=== PATIENT | male | born 1945 | race Caucasian/White ===

== ENCOUNTER 2018-06-04 06:27 | Inpatient (IN) ==
--- NOTE | 2018-06-04 07:06 | Emergency Department Note ---
Disposition Clinical Impression: Hypertensive emergency, Ureterolithiasis, Acute kidney injury Disposition: Admitted As Inpatient Condition: Fair [facility] Provider[facility] - Forms: ED Satisfaction Letter, Work/School Release Time of Disposition: 09:04 Abdominal Pain HPI - General Chief Complaint: ED Abdominal Pain Stated Complaint: "Abd Pain/Back Pain" Time Seen by Provider: 06/04/18 06:50 Source: patient, family Mode of arrival: ambulatory Limitations: no limitations Nursing Notes Reviewed: Yes Vital Signs Reviewed: Yes - History of Present Illness HPI Narrative: Nontoxic-appearing 73-year-old male presents for evaluation of diffuse abdominal pain that radiates into the lower back, chills, constipation, and intermittent episodes of dizziness. Patient states that symptoms began this past Saturday. He states that he was working outside on the tractor and began to feel lightheaded and as if he overexerted himself. He states that he parked tractor driven home, shortly thereafter, he began to chill. Shortly after his chills began, he began to experience diffuse lower abdominal pain that started radiating into the low back. It is also accompanied by nausea and several episodes of vomiting. He states that his last proper bowel movement was this past Saturday. He denies any dysuria, chest pain, shortness of breath, hematochezia, melena, or hematemesis. Pt Subjective Complaint: abdominal pain Onset (ago): day(s) Consistency: constant Location: diffuse Pain Severity: severe Pain Scale: 8 Quality: cramping Radiation: back Improves with: nothing Worsens with: nothing Associated symptoms: Reports: nausea, vomiting, chills, constipation. Denies: diarrhea, fever, dysuria, hematemesis, hematochezia, melena, hematuria Treatments prior to arrival: none - Related Data Allergies Allergy/AdvReac Type Severity Reaction Status Date / Time No Known Allergies Allergy Verified 06/04/18 06:28 All systems ED: reviewed and negative except as stated. Constitutional: Reports: as per HPI, chills. Denies: fever, weakness, weight change Eyes: Denies: eye pain, eye discharge, vision change ENT ED: Denies: ear pain, throat pain, dental pain, hearing loss, epistaxis, congestion, dysphagia Cardiovascular: Denies: chest pain, palpitations, dyspnea on exertion, edema, syncope Respiratory: Denies: cough, dyspnea, wheezes, hemoptysis, stridor Gastrointestinal: Reports: as per HPI, abdominal pain, nausea, vomiting, constipation. Denies: diarrhea, hematemesis, melena, hematochezia Genitourinary: Denies: urgency, dysuria, frequency, hematuria Musculoskeletal: Reports: as per HPI, back pain. Denies: neck pain, arthralgia , myalgia Integumentary: Denies: rash, abrasion, lesions Neurological: Denies: headache, weakness, numbness, paresthesias, confusion, abnormal gait, vertigo Psychiatric: Denies: anxiety, depression, suicidal thoughts, homicidal thoughts , auditory hallucinations, visual hallucinations Endocrine: Denies: fatigue Hematological/Lymphatic: Denies: easy bleeding, easy bruising Allergic/Immunologic: Denies: facial swelling, urticaria Abdominal Pain PMH - Past Medical History Medical history: Reports: hypertension Psychiatric history: Reports: no psych history - Social History Smoking status: Never smoker Alcohol use: Reports: none, rarely Physical Exam - General Limitations: no limitations General appearance: alert - Head Head exam: atraumatic, normocephalic, normal inspection - Eye Eye exam: Present: normal appearance, PERRL, EOMI. Absent: nystagmus - ENT ENT exam: mucous membranes moist - Neck Neck exam: Present: normal inspection, full ROM, trachea midline - Chest Chest inspection: Present: normal inspection, symmetric chest wall rise - Respiratory Respiratory exam: Present: normal lung sounds bilaterally. Absent: respiratory distress, wheezes, stridor, accessory muscle use, prolonged expiratory phase - Cardiovascular Cardiovascular exam: Present: regular rate, normal rhythm, normal heart sounds - Abdominal Exam Abdominal exam: Present: soft, tenderness, distention, guarding, normal bowel sounds. Absent: rebound, rigidity Abdominal tenderness: Present: diffuse, moderate - Extremities Exam Extremities exam: Present: normal inspection, full ROM. Absent: tenderness, pedal edema - Neurological Exam Neurological exam: Present: alert, oriented X3 - Psychiatric Psychiatric exam: Present: normal affect, normal mood - Skin Skin exam: Present: warm, dry, intact, normal color. Absent: rash Course Course Narrative: I have discussed this patient's case with Dr. Anabelle Soares. Dr. Anabelle Soares has had a [id number] evaluation with the patient and agrees that a CTA of the chest and abdomen should be performed to rule out a dissection given the patient's complaints of stabbing diffuse abdominal pain that radiates through to his back in conjunction with his hypertension. The patient does, however, have some decreased kidney function, compared to baseline results provided to me by the patient's spouse from a visit at the local [facility] in January of this year. At that time, his creatinine was 1.11 and his GFR was greater than 60. Today, creatinine is found to be 1.72 and his GFR is decreased to 39. 0740: I spoke with , radiologist with [facility]. He is in agreement that the patient would warrant a CTA dissection protocol given his complaints. He is agreeable to this study however does suggest that we hydrate the patient to the fullest extent possible as well as administer a 75% dose of IV contrast. I have conveyed these instructions to the sterilization tech here at [place]. 0858: I spoke with Dr. Holden, urologist front line supervisor. Dr. Holden we will consult with the patient in house after we admit to the hospitalist service. He does request the patient remain on nothing by mouth status at this time. 0930: I spoke with Dr. Cabrales, brake coupler dinkey front line supervisor regarding the patient's previously scheduled outpatient stress test for later this afternoon. Dr. Cabrales states that she will let the cardiopulmonary department know that the patient will not be able to make that appointment, as he will be admitted. She also states that given the patient has no cardiac complaints or symptoms, that in-house cardiology consultation is not warranted at this time. 1000: I spoke with Dr. Lu of the hospitalist service who is accepted the patient for further care and management. Vital Signs Temperature 98.1 F 06/04/18 06:29 Pulse Rate 95 06/04/18 06:29 Respiratory Rate 20 06/04/18 06:29 Blood Pressure 165/86 06/04/18 06:29 O2 Sat by Pulse Oximetry 95 06/04/18 06:29 Temperature 98.1 F 06/04/18 06:29 Pulse Rate 93 06/04/18 09:07 Respiratory Rate 20 06/04/18 09:07 Blood Pressure 151/88 06/04/18 09:07 O2 Sat by Pulse Oximetry 95 06/04/18 09:07 Oxygen Delivery Oxygen Delivery Room Air Abdominal Pain - Medical Records Medical records reviewed: Yes I reviewed the patient's medical records. - Lab Data Lab results reviewed: Yes I reviewed the patient's lab results. Lab results narrative: Lab Results 06/04/18 06/04/18 06/04/18 Range/Units 06:41 06:45 06:45 WBC 11.1 (4.3-11.1) K/mcL RBC 4.81 (4.19-5.50) M/mcL Hgb 14.4 (12.9-16.9) g/dL Hct 42.5 (37.5-50.1) % MCV 88.4 (83.0-100.0) fL MCH 29.9 (28.0-33.3) pg MCHC 33.9 (31.6-35.5) g/dL RDW 13.2 (11.5-14.5) % Plt Count 136 L (140-400) K/mcL MPV 10.4 (9.4-12.4) fL Sodium 139 (136-145) mEq/L Potassium 3.9 (3.5-5.1) mEq/L Chloride 107 (98-107) mEq/L Carbon Dioxide 24 (23-29) mEq/L BUN 21 (8-23) mg/dL Creatinine 1.72 H (0.70-1.30) mg/dL Est GFR ( Amer) 47 L (> 60) Est GFR (Non-Af Amer) 39 L (> 60) BUN/Creatinine Ratio 12 (6-26) Glucose 143 H (70-105) mg/dL Calculated Osmolality 293 (280-300) Lactic Acid (0.5-2.2) mmol/L Calcium 9.3 (8.6-10.3) mg/dL Total Bilirubin 1.1 H (0.3-1.0) mg/dL Direct Bilirubin 0.2 (0.0-0.2) mg/dL Indirect Bilirubin 0.9 (0.0-1.2) mg/dL AST 19 (13-39) Units/L ALT 20 (7-52) Units/L Alkaline Phosphatase 74 (34-104) Units/L Troponin I < 0.03 (< 0.04) ng/mL Serum Total Protein 7.1 (6.4-8.9) g/dL Albumin 4.3 (3.5-5.7) g/dL Globulin 2.8 (2.4-3.5) g/dL Albumin/Globulin Ratio 1.5 (1.1-2.2) Lipase 22 (11-82) Units/L Urine Color Yellow (Yellow) Urine Clarity Clear (Clear) Urine pH 5.5 (5.0-8.0) pH Units Ur Specific [place] 1.024 (1.010-1.025) Urine Protein Trace (Neg-Trace) mg/dL Urine Glucose (UA) Normal (Normal) mg/dL Urine Ketones Negative (Negative) mg/dL Urine Blood Moderate H (Negative) Urine Nitrite Negative (Negative) Urine Bilirubin Negative (Negative) Urine Urobilinogen Normal (Normal) mg/dL Ur Leukocyte Esterase Small H (Negative) Urine Microscopic RBC 50-100 H (0-3) per hpf Urine Microscopic WBC 15-30 H (0-3) per hpf Ur Squamous Epith Cells Moderate H (None-Few) per lpf Urine Bacteria None Seen (None-Few) per hpf Hyaline Casts None Seen (None-Few) per lpf Ur Culture Indicated? YES A (NO) 06/04/18 Range/Units 07:19 WBC (4.3-11.1) K/mcL RBC (4.19-5.50) M/mcL Hgb (12.9-16.9) g/dL Hct (37.5-50.1) % MCV (83.0-100.0) fL MCH (28.0-33.3) pg MCHC (31.6-35.5) g/dL RDW (11.5-14.5) % Plt Count (140-400) K/mcL MPV (9.4-12.4) fL Sodium (136-145) mEq/L Potassium (3.5-5.1) mEq/L Chloride (98-107) mEq/L Carbon Dioxide (23-29) mEq/L BUN (8-23) mg/dL Creatinine (0.70-1.30) mg/dL Est GFR ( Amer) (> 60) Est GFR (Non-Af Amer) (> 60) BUN/Creatinine Ratio (6-26) Glucose (70-105) mg/dL Calculated Osmolality (280-300) Lactic Acid 1.7 (0.5-2.2) mmol/L Calcium (8.6-10.3) mg/dL Total Bilirubin (0.3-1.0) mg/dL Direct Bilirubin (0.0-0.2) mg/dL Indirect Bilirubin (0.0-1.2) mg/dL AST (13-39) Units/L ALT (7-52) Units/L Alkaline Phosphatase (34-104) Units/L Troponin I (< 0.04) ng/mL Serum Total Protein (6.4-8.9) g/dL Albumin (3.5-5.7) g/dL Globulin (2.4-3.5) g/dL Albumin/Globulin Ratio (1.1-2.2) Lipase (11-82) Units/L Urine Color (Yellow) Urine Clarity (Clear) Urine pH (5.0-8.0) pH Units Ur Specific [place] (1.010-1.025) Urine Protein (Neg-Trace) mg/dL Urine Glucose (UA) (Normal) mg/dL Urine Ketones (Negative) mg/dL Urine Blood (Negative) Urine Nitrite (Negative) Urine Bilirubin (Negative) Urine Urobilinogen (Normal) mg/dL Ur Leukocyte Esterase (Negative) Urine Microscopic RBC (0-3) per hpf Urine Microscopic WBC (0-3) per hpf Ur Squamous Epith Cells (None-Few) per lpf Urine Bacteria (None-Few) per hpf Hyaline Casts (None-Few) per lpf Ur Culture Indicated? (NO) Result diagrams: 06/04/18 06:45 06/04/18 06:45 Lab Results 06/04/18 06/04/18 06/04/18 Range/Units 06:41 06:45 06:45 WBC 11.1 (4.3-11.1) K/mcL RBC 4.81 (4.19-5.50) M/mcL Hgb 14.4 (12.9-16.9) g/dL Hct 42.5 (37.5-50.1) % MCV 88.4 (83.0-100.0) fL MCH 29.9 (28.0-33.3) pg MCHC 33.9 (31.6-35.5) g/dL RDW 13.2 (11.5-14.5) % Plt Count 136 L (140-400) K/mcL MPV 10.4 (9.4-12.4) fL Sodium 139 (136-145) mEq/L Potassium 3.9 (3.5-5.1) mEq/L Chloride 107 (98-107) mEq/L Carbon Dioxide 24 (23-29) mEq/L BUN 21 (8-23) mg/dL Creatinine 1.72 H (0.70-1.30) mg/dL Est GFR ( Amer) 47 L (> 60) Est GFR (Non-Af Amer) 39 L (> 60) BUN/Creatinine Ratio 12 (6-26) Glucose 143 H (70-105) mg/dL Calculated Osmolality 293 (280-300) Lactic Acid (0.5-2.2) mmol/L Calcium 9.3 (8.6-10.3) mg/dL Total Bilirubin 1.1 H (0.3-1.0) mg/dL Direct Bilirubin 0.2 (0.0-0.2) mg/dL Indirect Bilirubin 0.9 (0.0-1.2) mg/dL AST 19 (13-39) Units/L ALT 20 (7-52) Units/L Alkaline Phosphatase 74 (34-104) Units/L Troponin I < 0.03 (< 0.04) ng/mL Serum Total Protein 7.1 (6.4-8.9) g/dL Albumin 4.3 (3.5-5.7) g/dL Globulin 2.8 (2.4-3.5) g/dL Albumin/Globulin Ratio 1.5 (1.1-2.2) Lipase 22 (11-82) Units/L Urine Color Yellow (Yellow) Urine Clarity Clear (Clear) Urine pH 5.5 (5.0-8.0) pH Units Ur Specific [place] 1.024 (1.010-1.025) Urine Protein Trace (Neg-Trace) mg/dL Urine Glucose (UA) Normal (Normal) mg/dL Urine Ketones Negative (Negative) mg/dL Urine Blood Moderate H (Negative) Urine Nitrite Negative (Negative) Urine Bilirubin Negative (Negative) Urine Urobilinogen Normal (Normal) mg/dL Ur Leukocyte Esterase Small H (Negative) Urine Microscopic RBC 50-100 H (0-3) per hpf Urine Microscopic WBC 15-30 H (0-3) per hpf Ur Squamous Epith Cells Moderate H (None-Few) per lpf Urine Bacteria None Seen (None-Few) per hpf Hyaline Casts None Seen (None-Few) per lpf Ur Culture Indicated? YES A (NO) 06/04/18 Range/Units 07:19 WBC (4.3-11.1) K/mcL RBC (4.19-5.50) M/mcL Hgb (12.9-16.9) g/dL Hct (37.5-50.1) % MCV (83.0-100.0) fL MCH (28.0-33.3) pg MCHC (31.6-35.5) g/dL RDW (11.5-14.5) % Plt Count (140-400) K/mcL MPV (9.4-12.4) fL Sodium (136-145) mEq/L Potassium (3.5-5.1) mEq/L Chloride (98-107) mEq/L Carbon Dioxide (23-29) mEq/L BUN (8-23) mg/dL Creatinine (0.70-1.30) mg/dL Est GFR ( Amer) (> 60) Est GFR (Non-Af Amer) (> 60) BUN/Creatinine Ratio (6-26) Glucose (70-105) mg/dL Calculated Osmolality (280-300) Lactic Acid 1.7 (0.5-2.2) mmol/L Calcium (8.6-10.3) mg/dL Total Bilirubin (0.3-1.0) mg/dL Direct Bilirubin (0.0-0.2) mg/dL Indirect Bilirubin (0.0-1.2) mg/dL AST (13-39) Units/L ALT (7-52) Units/L Alkaline Phosphatase (34-104) Units/L Troponin I (< 0.04) ng/mL Serum Total Protein (6.4-8.9) g/dL Albumin (3.5-5.7) g/dL Globulin (2.4-3.5) g/dL Albumin/Globulin Ratio (1.1-2.2) Lipase (11-82) Units/L Urine Color (Yellow) Urine Clarity (Clear) Urine pH (5.0-8.0) pH Units Ur Specific [place] (1.010-1.025) Urine Protein (Neg-Trace) mg/dL Urine Glucose (UA) (Normal) mg/dL Urine Ketones (Negative) mg/dL Urine Blood (Negative) Urine Nitrite (Negative) Urine Bilirubin (Negative) Urine Urobilinogen (Normal) mg/dL Ur Leukocyte Esterase (Negative) Urine Microscopic RBC (0-3) per hpf Urine Microscopic WBC (0-3) per hpf Ur Squamous Epith Cells (None-Few) per lpf Urine Bacteria (None-Few) per hpf Hyaline Casts (None-Few) per lpf Ur Culture Indicated? (NO) - Radiology Data Radiology results reviewed: Yes I reviewed the patient's radiology results. Chest X-Ray 06/04/18 07:01 IMPRESSION: No acute cardiopulmonary disease. D/ / Norman Johnson MD / Norman Johnson MD Interpreting Provider: Norman Johnson MD Abdomen/Pelvis CTA 06/04/18 07:40 IMPRESSION: There is an obstructive stone identified within the left proximal ureter measuring 3.6 mm causing periureteral and perinephric stranding, as well as mild hydronephrosis. Several nonspecific hypodense lesions identified throughout the liver, the largest of which likely representing a simple cyst. The others are too small to characterize. Further evaluation is recommended with an MRI of the liver per liver mass protocol. If unable to undergo MRI, consider a CT liver mass protocol examination. Diverticulosis without acute diverticulitis. There is a 4.6 mm pulmonary nodule identified in the left upper lobe, for which follow-up is recommended as below per Fleischner criteria. Atherosclerotic disease is identified, without aortic aneurysm or dissection. No significant arterial stenosis is seen. RECOMMENDATIONS: Fleischner Society guidelines for follow-up and management of incidentally detected pulmonary nodules: Single Solid Nodule: Nodule size less than 6 mm In a low-risk patient, no routine follow-up. In a high-risk patient, optional CT at 12 months. - Low risk patients include individuals with minimal or absent history of smoking and other known risk factors. - High risk patients include individuals with a history or smoking or known risk factors. Radiology 2017 http://pubs.rsna.org/doi/full/10.1148/radiol.[email or web address] D/ / John Meléndez MD / John Meléndez MD Interpreting Provider: John Meléndez MD Chest CTA 06/04/18 07:40 IMPRESSION: There is an obstructive stone identified within the left proximal ureter measuring 3.6 mm causing periureteral and perinephric stranding, as well as mild hydronephrosis. Several nonspecific hypodense lesions identified throughout the liver, the largest of which likely representing a simple cyst. The others are too small to characterize. Further evaluation is recommended with an MRI of the liver per liver mass protocol. If unable to undergo MRI, consider a CT liver mass protocol examination. Diverticulosis without acute diverticulitis. There is a 4.6 mm pulmonary nodule identified in the left upper lobe, for which follow-up is recommended as below per Fleischner criteria. Atherosclerotic disease is identified, without aortic aneurysm or dissection. No significant arterial stenosis is seen. RECOMMENDATIONS: Fleischner Society guidelines for follow-up and management of incidentally detected pulmonary nodules: Single Solid Nodule: Nodule size less than 6 mm In a low-risk patient, no routine follow-up. In a high-risk patient, optional CT at 12 months. - Low risk patients include individuals with minimal or absent history of smoking and other known risk factors. - High risk patients include individuals with a history or smoking or known risk factors. Radiology 2017 http://pubs.rsna.org/doi/full/10.1148/radiol.[email or web address] D/ / John Meléndez MD / John Meléndez MD Interpreting Provider: John Meléndez MD - EKG Data EKG attestation: Yes I reviewed and interpreted this EKG. EKG results narrative: EKG reviewed by Dr. Camp as well. EKG shows a sinus rhythm at a rate of 91 bpm. CA interval 152, QRS duration 93, QT/QTc interval 363/412. No ectopy noted. No ST elevation.
[2018-06-04 07:18] LABS: Bilirubin,Urine Negative (Negative); Blood,Urine Moderate (Negative); Clarity,Urine Clear (Clear); Color,Urine Yellow (Yellow); Glucose,Urine (UA) Normal (Normal); Ketones,Urine Negative (Negative); Leukocyte Esterase,Urine Small (Negative); Nitrite,Urine Negative (Negative); PH,Urine 5.5 pH Units (5.0-8.0); Protein,Urine Trace mg/dL (Neg-Trace); Specific Gravity,Urine 1.024 (1.010-1.025); Urobilinogen,Urine Normal (Normal)
[2018-06-04 07:21] LABS: Bacteria,Urine None Seen per hpf (None-Few); Hyaline Casts,Urine None Seen per lpf (None-Few); RBC,Urine 50-100 per hpf (0-3); Squamous Epithelial Cell,Urine Moderate per lpf (None-Few); WBC,Urine 15-30 per hpf (0-3)
[2018-06-04 07:22] LABS: Alanine Aminotransferase 20 Units/L (7-52); Albumin 4.3 g/dL (3.5-5.7); Albumin/Globulin Ratio 1.5 (1.1-2.2); Alkaline Phosphatase 74 Units/L (34-104); Aspartate Amino Transferase 19 Units/L (13-39); BUN/Creatinine Ratio 12 (6-26); Bilirubin,Direct 0.2 mg/dL (0.0-0.2); Bilirubin,Indirect 0.9 mg/dL (0.0-1.2); Bilirubin,Total 1.1 mg/dL (0.3-1.0); Blood Urea Nitrogen 21 mg/dL (8-23); Calcium 9.3 mg/dL (8.6-10.3); Carbon Dioxide 24 mEq/L (23-29); Chloride 107 mEq/L (98-107); Globulin 2.8 g/dL (2.4-3.5); Glucose 143 mg/dL (70-105); Lipase 22 Units/L (11-82); Osmolality,Calculated 293 (280-300); Potassium 3.9 mEq/L (3.5-5.1); Sodium 139 mEq/L (136-145); Total Protein 7.1 g/dL (6.4-8.9); Troponin I < 0.03 ng/mL (< 0.04); eGFR For Non-African Americans 39 (> 60)
[2018-06-04 07:23] LABS: Hematocrit 42.5 % (37.5-50.1); Hemoglobin 14.4 g/dL (12.9-16.9); Mean Corpuscular HGB Conc 33.9 g/dL (31.6-35.5); Mean Corpuscular Hemoglobin 29.9 pg (28.0-33.3); Mean Corpuscular Volume 88.4 fL (83.0-100.0); Mean Platelet Volume 10.4 fL (9.4-12.4); Platelet Count 136 K/mcL (140-400); Red Blood Count 4.81 M/mcL (4.19-5.50); Red Cell Distribution Width 13.2 % (11.5-14.5)
[2018-06-04] MEDS ORDERED: Isovue-370 500 ML INFUS..BTL IV ONE (07:40)
--- NOTE | 2018-06-04 07:57 | Emergency Department Note ---
Disposition Clinical Impression: Hypertensive emergency Disposition: Admitted As Inpatient [facility] Provider[facility] - Forms: ED Satisfaction Letter, Work/School Release Time of Disposition: 07:57 General Adult HPI - General Chief complaint: ED Abdominal Pain Stated complaint: "Abd Pain/Back Pain" Time Seen by Provider: 06/04/18 06:50 Source: patient, family Mode of arrival: ambulatory Limitations: no limitations - History of Present Illness Pain Scale: 8 - Related Data Allergies Allergy/AdvReac Type Severity Reaction Status Date / Time No Known Allergies Allergy Verified 06/04/18 06:28 Constitutional: Reports: as per HPI, chills. Denies: fever, weakness, weight change Eyes: Denies: eye pain, eye discharge, vision change ENT ED: Denies: ear pain, throat pain, dental pain, hearing loss, epistaxis, congestion, dysphagia Cardiovascular: Denies: chest pain, palpitations, dyspnea on exertion, edema, syncope Respiratory: Denies: cough, dyspnea, wheezes, hemoptysis, stridor Gastrointestinal: Reports: as per HPI, abdominal pain, nausea, vomiting, constipation. Denies: diarrhea, hematemesis, melena, hematochezia Genitourinary: Denies: urgency, dysuria, frequency, hematuria Musculoskeletal: Reports: as per HPI, back pain. Denies: neck pain, arthralgia , myalgia Integumentary: Denies: rash, abrasion, lesions Neurological: Denies: headache, weakness, numbness, paresthesias, confusion, abnormal gait, vertigo Psychiatric: Denies: anxiety, depression, suicidal thoughts, homicidal thoughts , auditory hallucinations, visual hallucinations Endocrine: Denies: fatigue Hematological/Lymphatic: Denies: easy bleeding, easy bruising Allergic/Immunologic: Denies: facial swelling, urticaria Past Medical History - Past Medical History Medical history: Reports: hypertension Psychiatric history: Reports: no psych history - Social History Smoking Status: Never smoker Alcohol use: Reports: none, rarely Physical Exam - General Limitations: no limitations General appearance: alert Course Vital Signs Temperature 98.1 F 06/04/18 06:29 Pulse Rate 95 06/04/18 06:29 Respiratory Rate 20 06/04/18 06:29 Blood Pressure 165/86 06/04/18 06:29 O2 Sat by Pulse Oximetry 95 06/04/18 06:29 Temperature 98.1 F 06/04/18 06:29 Pulse Rate 90 06/04/18 06:47 Respiratory Rate 18 06/04/18 06:47 Blood Pressure 191/93 06/04/18 06:47 O2 Sat by Pulse Oximetry 94 06/04/18 06:47 Oxygen Delivery Oxygen Delivery Room Air Medical Decision Making - Lab Data Result diagrams: 06/04/18 06:45 06/04/18 06:45 Lab Results 06/04/18 06/04/18 06/04/18 Range/Units 06:41 06:45 06:45 WBC 11.1 (4.3-11.1) K/mcL RBC 4.81 (4.19-5.50) M/mcL Hgb 14.4 (12.9-16.9) g/dL Hct 42.5 (37.5-50.1) % MCV 88.4 (83.0-100.0) fL MCH 29.9 (28.0-33.3) pg MCHC 33.9 (31.6-35.5) g/dL RDW 13.2 (11.5-14.5) % Plt Count 136 L (140-400) K/mcL MPV 10.4 (9.4-12.4) fL Sodium 139 (136-145) mEq/L Potassium 3.9 (3.5-5.1) mEq/L Chloride 107 (98-107) mEq/L Carbon Dioxide 24 (23-29) mEq/L BUN 21 (8-23) mg/dL Creatinine 1.72 H (0.70-1.30) mg/dL Est GFR ( Amer) 47 L (> 60) Est GFR (Non-Af Amer) 39 L (> 60) BUN/Creatinine Ratio 12 (6-26) Glucose 143 H (70-105) mg/dL Calculated Osmolality 293 (280-300) Lactic Acid (0.5-2.2) mmol/L Calcium 9.3 (8.6-10.3) mg/dL Total Bilirubin 1.1 H (0.3-1.0) mg/dL Direct Bilirubin 0.2 (0.0-0.2) mg/dL Indirect Bilirubin 0.9 (0.0-1.2) mg/dL AST 19 (13-39) Units/L ALT 20 (7-52) Units/L Alkaline Phosphatase 74 (34-104) Units/L Troponin I < 0.03 (< 0.04) ng/mL Serum Total Protein 7.1 (6.4-8.9) g/dL Albumin 4.3 (3.5-5.7) g/dL Globulin 2.8 (2.4-3.5) g/dL Albumin/Globulin Ratio 1.5 (1.1-2.2) Lipase 22 (11-82) Units/L Urine Color Yellow (Yellow) Urine Clarity Clear (Clear) Urine pH 5.5 (5.0-8.0) pH Units Ur Specific [place] 1.024 (1.010-1.025) Urine Protein Trace (Neg-Trace) mg/dL Urine Glucose (UA) Normal (Normal) mg/dL Urine Ketones Negative (Negative) mg/dL Urine Blood Moderate H (Negative) Urine Nitrite Negative (Negative) Urine Bilirubin Negative (Negative) Urine Urobilinogen Normal (Normal) mg/dL Ur Leukocyte Esterase Small H (Negative) Urine Microscopic RBC 50-100 H (0-3) per hpf Urine Microscopic WBC 15-30 H (0-3) per hpf Ur Squamous Epith Cells Moderate H (None-Few) per lpf Urine Bacteria None Seen (None-Few) per hpf Hyaline Casts None Seen (None-Few) per lpf Ur Culture Indicated? YES A (NO) 06/04/18 Range/Units 07:19 WBC (4.3-11.1) K/mcL RBC (4.19-5.50) M/mcL Hgb (12.9-16.9) g/dL Hct (37.5-50.1) % MCV (83.0-100.0) fL MCH (28.0-33.3) pg MCHC (31.6-35.5) g/dL RDW (11.5-14.5) % Plt Count (140-400) K/mcL MPV (9.4-12.4) fL Sodium (136-145) mEq/L Potassium (3.5-5.1) mEq/L Chloride (98-107) mEq/L Carbon Dioxide (23-29) mEq/L BUN (8-23) mg/dL Creatinine (0.70-1.30) mg/dL Est GFR ( Amer) (> 60) Est GFR (Non-Af Amer) (> 60) BUN/Creatinine Ratio (6-26) Glucose (70-105) mg/dL Calculated Osmolality (280-300) Lactic Acid 1.7 (0.5-2.2) mmol/L Calcium (8.6-10.3) mg/dL Total Bilirubin (0.3-1.0) mg/dL Direct Bilirubin (0.0-0.2) mg/dL Indirect Bilirubin (0.0-1.2) mg/dL AST (13-39) Units/L ALT (7-52) Units/L Alkaline Phosphatase (34-104) Units/L Troponin I (< 0.04) ng/mL Serum Total Protein (6.4-8.9) g/dL Albumin (3.5-5.7) g/dL Globulin (2.4-3.5) g/dL Albumin/Globulin Ratio (1.1-2.2) Lipase (11-82) Units/L Urine Color (Yellow) Urine Clarity (Clear) Urine pH (5.0-8.0) pH Units Ur Specific [place] (1.010-1.025) Urine Protein (Neg-Trace) mg/dL Urine Glucose (UA) (Normal) mg/dL Urine Ketones (Negative) mg/dL Urine Blood (Negative) Urine Nitrite (Negative) Urine Bilirubin (Negative) Urine Urobilinogen (Normal) mg/dL Ur Leukocyte Esterase (Negative) Urine Microscopic RBC (0-3) per hpf Urine Microscopic WBC (0-3) per hpf Ur Squamous Epith Cells (None-Few) per lpf Urine Bacteria (None-Few) per hpf Hyaline Casts (None-Few) per lpf Ur Culture Indicated? (NO) Attestation Statement - Attestation Attestation: For this encounter, I have reviewed the REPRODUCTION SPECIALIST or PA documentation, treatment plan, and medical decision making; and I have had face to face time with this patient. 73 year old male with epigatric pain that radiates into his back [facility] Medardo states that he has been currenlty evlauted for hematuria and today on labs appears to have SABI secondary to uncontrolled HTN. There is concern for aortic dissection and we have spoken with radiologist about CTA chest/ab/p and he agrees to do the study with hydration of medardo afterwards. Patient will have a CTA and then be admitted to medicine if study is negative for hypertensive emergency.
[2018-06-04] MEDS ORDERED: Ondansetron 4 MG/2 ML VIAL IVP ONE ×3 (08:24→18:33)
[2018-06-04] MEDS ORDERED: *HR* FentaNYL (PF) 100 MCG/2 ML VIAL IVP ONE (08:24)
--- NOTE | 2018-06-04 09:44 | Internal Med History&Physical ---
Date of Encounter: 06/04/18 Internal Medicine - H&P: HPI History of present illness: Mr. Eugene is a 73 year old male Past Med Surg Social Fam HX - Past Medical History Medical history: hypertension Psychiatric history: no psych history - Social History Smoking Status: Never smoker Alcohol use: none, rarely Internal Medicine - H&P: Meds 3 Allergy/AdvReac Type Severity Reaction Status Date / Time No Known Allergies Allergy Verified 06/04/18 06:28 All Systems PM: A 10-system review of systems was performed and is negative for pertinent findings except as documented above in the HPI. - Constitutional Vitals: Temp Pulse Resp BP Pulse Ox 98.1 F 93 20 151/88 95 06/04/18 06:29 06/04/18 09:07 06/04/18 09:07 06/04/18 09:07 06/04/18 09:07 Internal Med - H&P Results - Labs CBC & Chem 7: 06/04/18 06:45 06/04/18 06:45 Labs: Short CBC 06/04/18 Range/Units 06:45 WBC 11.1 (4.3-11.1) K/mcL Hgb 14.4 (12.9-16.9) g/dL Hct 42.5 (37.5-50.1) % Plt Count 136 L (140-400) K/mcL BMP 06/04/18 06:45 Sodium 139 Potassium 3.9 Chloride 107 Carbon Dioxide 24 BUN 21 Creatinine 1.72 H Glucose 143 H Calcium 9.3 Cardiac Enzymes 06/04/18 Range/Units 06:45 Troponin I < 0.03 (< 0.04) ng/mL Liver Function 06/04/18 Range/Units 06:45 Total Bilirubin 1.1 H (0.3-1.0) mg/dL Direct Bilirubin 0.2 (0.0-0.2) mg/dL AST 19 (13-39) Units/L ALT 20 (7-52) Units/L Alkaline Phosphatase 74 (34-104) Units/L Albumin 4.3 (3.5-5.7) g/dL Urine 06/04/18 Range/Units 06:41 Urine Color Yellow (Yellow) Urine Clarity Clear (Clear) Urine pH 5.5 (5.0-8.0) pH Units Ur Specific [place] 1.024 (1.010-1.025) Urine Protein Trace (Neg-Trace) mg/dL Urine Glucose (UA) Normal (Normal) mg/dL - Impressions ITS Impressions Chest X-Ray 06/04/18 07:01 IMPRESSION: No acute cardiopulmonary disease. D/ / Norman Johnson MD / Norman Johnson MD Interpreting Provider: Norman Johnson MD Abdomen/Pelvis CTA 06/04/18 07:40 IMPRESSION: There is an obstructive stone identified within the left proximal ureter measuring 3.6 mm causing periureteral and perinephric stranding, as well as mild hydronephrosis. Several nonspecific hypodense lesions identified throughout the liver, the largest of which likely representing a simple cyst. The others are too small to characterize. Further evaluation is recommended with an MRI of the liver per liver mass protocol. If unable to undergo MRI, consider a CT liver mass protocol examination. Diverticulosis without acute diverticulitis. There is a 4.6 mm pulmonary nodule identified in the left upper lobe, for which follow-up is recommended as below per Fleischner criteria. Atherosclerotic disease is identified, without aortic aneurysm or dissection. No significant arterial stenosis is seen. RECOMMENDATIONS: Fleischner Society guidelines for follow-up and management of incidentally detected pulmonary nodules: Single Solid Nodule: Nodule size less than 6 mm In a low-risk patient, no routine follow-up. In a high-risk patient, optional CT at 12 months. - Low risk patients include individuals with minimal or absent history of smoking and other known risk factors. - High risk patients include individuals with a history or smoking or known risk factors. Radiology 2017 http://pubs.rsna.org/doi/full/10.1148/radiol.[email or web address] D/ / John Meléndez MD / John Meléndez MD Interpreting Provider: John Meléndez MD Chest CTA 06/04/18 07:40 IMPRESSION: There is an obstructive stone identified within the left proximal ureter measuring 3.6 mm causing periureteral and perinephric stranding, as well as mild hydronephrosis. Several nonspecific hypodense lesions identified throughout the liver, the largest of which likely representing a simple cyst. The others are too small to characterize. Further evaluation is recommended with an MRI of the liver per liver mass protocol. If unable to undergo MRI, consider a CT liver mass protocol examination. Diverticulosis without acute diverticulitis. There is a 4.6 mm pulmonary nodule identified in the left upper lobe, for which follow-up is recommended as below per Fleischner criteria. Atherosclerotic disease is identified, without aortic aneurysm or dissection. No significant arterial stenosis is seen. RECOMMENDATIONS: Fleischner Society guidelines for follow-up and management of incidentally detected pulmonary nodules: Single Solid Nodule: Nodule size less than 6 mm In a low-risk patient, no routine follow-up. In a high-risk patient, optional CT at 12 months. - Low risk patients include individuals with minimal or absent history of smoking and other known risk factors. - High risk patients include individuals with a history or smoking or known risk factors. Radiology 2017 http://pubs.rsna.org/doi/full/10.1148/radiol.[email or web address] D/ / John Meléndez MD / John Meléndez MD Interpreting Provider: John Meléndez MD - Time Spent With Patient Total time spent is greater than 50% in coordination of care (as documented) at patient's floor/unit and/or counseling patient:
--- NOTE | 2018-06-04 12:29 | Urology - Consult Note ---
<Ana Myrick N - Last Filed: 06/04/18 14:06> Date of Encounter: 06/04/18 Time of Encounter: 11:00 - Assessment and Plan (1) Ureterolithiasis Current Visit: Yes Status: Acute Assessment and plan: Patient is a 73-year-old male who presents the emergency department with a left proximal obstructing 3.6 mm ureteral stone. The patient is being admitted to the hospitalist service. Patient is to remain nothing by mouth. I discussed the risks and benefits of a ureteroscopic stone extraction with holmium laser and basket retrieval as well as ureteral stent placment with the patient and his . The patient and his both verbalized understanding and wish to proceed with surgery. The patient is admitted to the hospitalist service and will remain NPO. Urology CN:HPI Consult date: 06/04/18 Reason for consult Urology: Other (Left ureteral stone) History of present illness: Patient is a 73-year-old male who presented to the emergency department with complaints of abdominal pain and left flank pain. He states he has been up most of the night with nausea, urinary hesitancy, frequency, and severe pain. The patient was scheduled for a nuclear stress test by his primary care physician at the [facility], therefore the patient has not taken aspirin 81 mg for 48 hours. The patient denies any other anticoagulant therapy. Patient is established with a urologist at the [facility]. He recently underwent a cystoscopy for hematuria, and findings were benign per the patient' s . The patient is currently being treated for benign prostatic hypertrophy with tamsulosin daily and finasteride daily. The patient does have a history of renal stones, he has never undergone a procedure for extraction. Past Med Surg Social Fam HX - Past Medical History Medical history: hypertension Psychiatric history: no psych history - Social History Smoking Status: Never smoker Alcohol use: none, rarely Drug use: none Medications and Allergies Amlodipine Besylate 10 mg PO DAILY 06/04/18 [History] Aspirin [Lo-Dose Aspirin EC] 81 mg PO DAILY 06/04/18 [History] Escitalopram [Lexapro] 10 mg PO DAILY 06/04/18 [History] Finasteride [Proscar] 5 mg PO DAILY 06/04/18 [History] Fluticasone Propionate Nasal [Flonase] 1 spr NS DAILY 06/04/18 [History] Ginseng 100 mg PO DAILY 06/04/18 [History] Losartan Potassium [Cozaar] 100 mg PO DAILY 06/04/18 [History] Metoprolol Succinate [Toprol Xl] 25 mg PO DAILY 06/04/18 [History] Multivit-Min/FA/Lycopen/Lutein [A Thru Z Select Multivit Tab] 1 tab PO DAILY 06/14 [History] Naproxen [Naprosyn] 500 mg PO BID PRN 06/04/18 [History] Sennosides/Docusate Sodium [Colace 2-in-1 Tablet] 1 tab PO BID PRN 06/04/18 [ History] Sildenafil Citrate 100 mg PO DAILY PRN 06/04/18 [History] Tamsulosin HCl [Flomax] 0.4 mg PO BID 06/04/18 [History] Trazodone HCl 150 mg PO HS 06/04/18 [History] lamoTRIgine [Lamictal] 100 mg PO BID 06/04/18 [History] 3 Allergy/AdvReac Type Severity Reaction Status Date / Time No Known Allergies Allergy Verified 06/04/18 06:28 Review of Systems - Constitutional as per HPI, no chills, no fatigue, no fever(s) - EENT Nose, mouth and throat: no dizziness, no headache(s) - Cardiovascular no chest pain, no dyspnea - Respiratory no cough, no dyspnea - Gastrointestinal abdominal pain, nausea, no change in bowel habits, no vomiting - Genitourinary change in urinary stream, difficulty urinating, flank pain, hematuria, urinary frequency, urinary hesitancy, urinary urgency, no dysuria, no testicular pain, no urinary incontinence - Musculoskeletal back pain, no muscle weakness - Integumentary no lesions, no rash, no swelling - Neurological no confusion, no syncope - Psychiatric no anxiety, no confusion Exam Initial Vital Signs Temp Pulse Resp BP Pulse Ox 98.1 F 95 20 165/86 95 06/04/18 06:29 06/04/18 06:29 06/04/18 06:29 06/04/18 06:29 06/04/18 06:29 - General physical appearance Present: well developed, no distress, no pain - Eyes Present: PERRL, normal ocular movement - ENT Present: normal nares. Absent: nasal discharge - Neck Present: no masses, trachea midline - Respiratory Present: normal respiratory effort - Cardiovascular Cardiovascular exam IM: RRR - Abdomen Abdomen: Present: soft, non tender - Genitourinary other (left CVAT) - Integumentary Present: no rash, no abnormal pigmentation - Neurologic Present: normal coordination. Absent: disoriented - Musculoskeletal Present: other (no pedal edema ) Urology Results - Labs 06/04/18 06:45 08 06:45 Abnormal lab results Plt Count 136 K/mcL (140-400) L 06/04/18 06:45 Creatinine 1.72 mg/dL (0.70-1.30) H 06/04/18 06:45 Est GFR ( Amer) 47 (> 60) L 06/04/18 06:45 Est GFR (Non-Af Amer) 39 (> 60) L 06/04/18 06:45 Glucose 143 mg/dL (70-105) H 06/04/18 06:45 Total Bilirubin 1.1 mg/dL (0.3-1.0) H 06/04/18 06:45 Urine Blood Moderate (Negative) H 06/04/18 06:41 Ur Leukocyte Esterase Small (Negative) H 06/04/18 06:41 Urine Microscopic RBC 50-100 per hpf (0-3) H 06/04/18 06:41 Urine Microscopic WBC 15-30 per hpf (0-3) H 06/04/18 06:41 Ur Squamous Epith Cells Moderate per lpf (None-Few) H 06/04/18 06:41 Ur Culture Indicated? YES (NO) A 06/04/18 06:41 All other labs normal. - Imaging CT scan - abdomen: report reviewed, image reviewed CT scan - pelvis: report reviewed, image reviewed Consult Discharge Plan - Plan [facility] Provider[facility] - <Ciro Holden - Last Filed: 06/04/18 17:29> Date of Encounter: 06/04/18 Exam Initial Vital Signs Temp Pulse Resp BP Pulse Ox 98.1 F 95 20 165/86 95 06/04/18 06:29 18 06:29 18 06:29 06/04/18 06:29 06/04/18 06:29 Urology Results - Labs 06/04/18 06:45 06/04/18 06:45 Abnormal lab results Plt Count 136 K/mcL (140-400) L 06/04/18 06:45 Creatinine 1.72 mg/dL (0.70-1.30) H 06/04/18 06:45 Est GFR ( Amer) 47 (> 60) L 06/04/18 06:45 Est GFR (Non-Af Amer) 39 (> 60) L 06/04/18 06:45 Glucose 143 mg/dL (70-105) H 06/04/18 06:45 Total Bilirubin 1.1 mg/dL (0.3-1.0) H 06/04/18 06:45 Urine Blood Moderate (Negative) H 06/04/18 06:41 Ur Leukocyte Esterase Small (Negative) H 06/04/18 06:41 Urine Microscopic RBC 50-100 per hpf (0-3) H 06/04/18 06:41 Urine Microscopic WBC 15-30 per hpf (0-3) H 06/04/18 06:41 Ur Squamous Epith Cells Moderate per lpf (None-Few) H 06/04/18 06:41 Ur Culture Indicated? YES (NO) A 06/04/18 06:41 All other labs normal. - Attending Attestation I seen and examined the patient with the PA. Agree with the assessment and plan. He has a proximal left ureteral stone. Plan for left ureteroscopy, laser lithotripsy, and stent placement. He was informed of the risks of the procedure including but not limited to bleeding, infection, injury to other structures, need for further procedures, stent irritation, incomplete fragmentation, ureteral perforation, need for nephrostomy tube, need for open repair, risks unforeseen, and the risk of anesthesia. He is willing to proceed.
--- NOTE | 2018-06-04 13:06 | Internal Med History&Physical ---
Date of Encounter: 06/04/18 Time of Encounter: 12:55 Internal Medicine - H&P: HPI Admitted From: Home Plans for Post Hospital Care: Home History of present illness: Mr. Eugene is a 73 year old male with past medical history of renal calculi who presents with left flank pain that developed on 06/02/2018. Pt states pain radiated to his left back and mid abdomen. Reported feeling nauseous and vomited. Does not note hematuria but reports subjective fever and chills. CODE STATUS: FULL In ED Case discussed with urologist in ED and they plan on seeing the pt in consult. Temp 98.2, WBC 11.1 Cr 1.72, BUN21, glucose 143. Urine moderate blood, small leuks, urine WBC 50-100. CTA abd/pelvis CT/CT angio abdomen pelvis IMPRESSION: There is an obstructive stone identified within the left proximal ureter measuring 3.6 mm causing periureteral and perinephric stranding, as well as mild hydronephrosis. Several nonspecific hypodense lesions identified throughout the liver, the largest of which likely representing a simple cyst. The others are too small to characterize. Further evaluation is recommended with an MRI of the liver per liver mass protocol. If unable to undergo MRI, consider a CT liver mass protocol examination. Diverticulosis without acute diverticulitis. There is a 4.6 mm pulmonary nodule identified in the left upper lobe, for which follow-up is recommended as below per Fleischner criteria. Atherosclerotic disease is identified, without aortic aneurysm or dissection. No significant arterial stenosis is seen. Past Med Surg Social Fam HX - Past Medical History Medical history: hypertension Psychiatric history: no psych history - Social History Smoking Status: Never smoker Alcohol use: none, rarely Drug use: none Internal Medicine - H&P: Meds Amlodipine Besylate 10 mg PO DAILY 06/04/18 [History] Aspirin [Lo-Dose Aspirin EC] 81 mg PO DAILY 06/04/18 [History] Escitalopram [Lexapro] 10 mg PO DAILY 06/04/18 [History] Finasteride [Proscar] 5 mg PO DAILY 06/04/18 [History] Fluticasone Propionate Nasal [Flonase] 1 spr NS DAILY 06/04/18 [History] Ginseng 100 mg PO DAILY 06/04/18 [History] Losartan Potassium [Cozaar] 100 mg PO DAILY 06/04/18 [History] Metoprolol Succinate [Toprol Xl] 25 mg PO DAILY 06/04/18 [History] Multivit-Min/FA/Lycopen/Lutein [A Thru Z Select Multivit Tab] 1 tab PO DAILY 06/14 [History] Naproxen [Naprosyn] 500 mg PO BID PRN 06/04/18 [History] Sennosides/Docusate Sodium [Colace 2-in-1 Tablet] 1 tab PO BID PRN 06/04/18 [ History] Sildenafil Citrate 100 mg PO DAILY PRN 06/04/18 [History] Tamsulosin HCl [Flomax] 0.4 mg PO BID 06/04/18 [History] Trazodone HCl 150 mg PO HS 06/04/18 [History] lamoTRIgine [Lamictal] 100 mg PO BID 06/04/18 [History] 3 Allergy/AdvReac Type Severity Reaction Status Date / Time No Known Allergies Allergy Verified 06/04/18 06:28 All Systems PM: A 10-system review of systems was performed and is negative for pertinent findings except as documented above in the HPI. - Constitutional Vitals: Temp Pulse Resp BP Pulse Ox 98.2 F 75 16 145/83 94 06/04/18 11:06 06/04/18 11:06 06/04/18 11:06 06/04/18 11:06 06/04/18 11:06 General appearance: Present: A&O X 3, no acute distress - Head Head exam: Present: atraumatic, normocephalic - Eye Eye exam: Present: PERRL, conjuntiva pink, sclera anicteric Pupils: Present: PERRL - Neck Neck exam general surgery: Present: supple, trachea midline. Absent: lymphadenopathy - Respiratory Respiratory exam: Present: CTAB. Absent: accessory muscle use, rales, rhonchi, wheezes - Cardiovascular Cardiovascular exam: Present: RRR, +S1, +S2. Absent: diastolic murmur, gallop, rubs, systolic murmur - GI/Abdominal GI/Abdominal exam: Present: normal bowel sounds, soft, tenderness, no peritoneal signs. Absent: distended Additional comments: left flank tenderness. - Extremities Exam Extremities exam: Present: warm, radial pulses palpable and symmetrical. Absent : calf tenderness, cyanotic, pedal edema - Neurological Exam Neurological exam: Present: CN II-XII intact, oriented X3, no focal deficits. Absent: pronater drift, facial droop, speech deficit - Skin Skin exam: Present: dry, intact Internal Med - H&P Results - Labs CBC & Chem 7: 06/04/18 06:45 06/04/18 06:45 - Assessment and plan (1) Ureterolithiasis Current Visit: Yes Status: Acute Assessment and plan: The patient does have a history of renal stones, he has never undergone a procedure for extraction. Case discussed with urologist in ED cue to CT showing left proximal obstructing 3.6 mm ureteral stone Urology planing to do possible stone extraction in am. Prn pain control. (2) HTN (hypertension) Current Visit: Yes Status: Acute Assessment and plan: Will monitor BP and resume home BP medication Qualifiers: Hypertension type: essential hypertension Qualified Code(s): I10 - Essential (primary) hypertension (3) Acute kidney injury Current Visit: Yes Status: Acute Assessment and plan: Will give IVF and monitor renal function (4) Liver masses Current Visit: Yes Status: Acute Assessment and plan: CTA abd/pelvis showing several nonspecific hypodense lesions identified throughout the liver, the largest of which likely representing a simple cyst. Recommend MRI Liver follow up out pt. (5) Pulmonary nodule Current Visit: Yes Status: Acute Assessment and plan: Recommend out pt follow up with project administrative assistant and CT chest follow up in 12months. - Time Spent With Patient Total time spent is greater than 50% in coordination of care (as documented) at patient's floor/unit and/or counseling patient: 25 - 35 minutes
[2018-06-04] MEDS ORDERED: Sennosides/Docusate Sodium TABLET PO PRN ×2 (13:20→18:33)
[2018-06-04] MEDS ORDERED: NON-FORMULARY MEDICATION 1 EACH EACH (Sildenafil Citrate [Sildenafil Citrate] 100 MG) PO PRN (13:20)
[2018-06-04] MEDS ORDERED: *HR* OxyCODONE/APAP 5/325 TABLET PO PRN ×2 (13:27→18:33)
[2018-06-04] MEDS ORDERED: Naloxone 0.4 MG/ML INJ IVP PRN ×2 (13:42→18:33)
[2018-06-04] MEDS ORDERED: 0.9 % Sodium Chloride 1,000 ML IVC SCH (15:30)
[2018-06-04] MEDS ORDERED: *HR* FentaNYL (PF) 100 MCG/2 ML VIAL ONE (16:20)
[2018-06-04] MEDS ORDERED: Lidocaine -MPF 2% 2 ML VIAL ONE (16:20)
[2018-06-04] MEDS ORDERED: Dexamethasone 4 MG/ML VIAL ONE (16:20)
[2018-06-04] MEDS ORDERED: *HR* Propofol 200 MG/20 ML VIAL IVP ONE (16:20)
[2018-06-04] MEDS ORDERED: Ondansetron 4 MG/2 ML VIAL ONE (16:20)
--- NOTE | 2018-06-04 16:33 | Anesthesia Evaluation PreOp ---
Date of Encounter: 06/04/18 Time of Encounter: 16:31 - Past History Planned Operation: L-Ureteroscopic Stone Extraction Cardiac History: HTN Pulmonary History: Other (Hx Pulmonary Nodule) STAFFING BRANCH MANAGER History: Other (Anxiety/Depression) Other Medical History: Renal (Nephrolithiasis) Anesthesia History: No Prior Anesthetic Complications, Past Anesthesia ( Eye surgery/Bleparoplasty 03/2018, C6 spine sugery 1980s) Alcohol Use: none, rarely Drug use: none Medications and Allergies Amlodipine Besylate 10 mg PO DAILY 06/04/18 [History] Aspirin [Lo-Dose Aspirin EC] 81 mg PO DAILY 06/04/18 [History] Escitalopram [Lexapro] 10 mg PO DAILY 06/04/18 [History] Finasteride [Proscar] 5 mg PO DAILY 06/04/18 [History] Fluticasone Propionate Nasal [Flonase] 1 spr NS DAILY 06/04/18 [History] Ginseng 100 mg PO DAILY 06/04/18 [History] Losartan Potassium [Cozaar] 100 mg PO DAILY 06/04/18 [History] Metoprolol Succinate [Toprol Xl] 25 mg PO DAILY 06/04/18 [History] Multivit-Min/FA/Lycopen/Lutein [A Thru Z Select Multivit Tab] 1 tab PO DAILY 06/14 [History] Naproxen [Naprosyn] 500 mg PO BID PRN 06/04/18 [History] Sennosides/Docusate Sodium [Colace 2-in-1 Tablet] 1 tab PO BID PRN 06/04/18 [ History] Sildenafil Citrate 100 mg PO DAILY PRN 06/04/18 [History] Tamsulosin HCl [Flomax] 0.4 mg PO BID 06/04/18 [History] Trazodone HCl 150 mg PO HS 06/04/18 [History] lamoTRIgine [Lamictal] 100 mg PO BID 06/04/18 [History] 3 Allergy/AdvReac Type Severity Reaction Status Date / Time No Known Allergies Allergy Verified 06/04/18 06:28 - Meds/Allergy Pre-op Review Medications Reviewed: Yes Allergies Reviewed: Yes Beta Blockers on Current Med List: Yes (Metoprolol) If Beta Blockers taken, Date/Time (Last Dose taken): 06/04/2018 @ Anesthesia Results - Labs 06/04/18 06:45 06/04/18 06:45 Laboratory Results WBC 11.1 K/mcL (4.3-11.1) 06/04/18 06:45 RBC 4.81 M/mcL (4.19-5.50) 06/04/18 06:45 Hgb 14.4 g/dL (12.9-16.9) 06/04/18 06:45 Hct 42.5 % (37.5-50.1) 06/04/18 06:45 MCV 88.4 fL (83.0-100.0) 06/04/18 06:45 MCH 29.9 pg (28.0-33.3) 06/04/18 06:45 MCHC 33.9 g/dL (31.6-35.5) 06/04/18 06:45 RDW 13.2 % (11.5-14.5) 06/04/18 06:45 Plt Count 136 K/mcL (140-400) L 06/04/18 06:45 MPV 10.4 fL (9.4-12.4) 06/04/18 06:45 Sodium 139 mEq/L (136-145) 06/04/18 06:45 Potassium 3.9 mEq/L (3.5-5.1) 06/04/18 06:45 Chloride 107 mEq/L (98-107) 06/04/18 06:45 Carbon Dioxide 24 mEq/L (23-29) 06/04/18 06:45 BUN 21 mg/dL (8-23) 06/04/18 06:45 Creatinine 1.72 mg/dL (0.70-1.30) H 06/04/18 06:45 Est GFR ( Amer) 47 (> 60) L 06/04/18 06:45 Est GFR (Non-Af Amer) 39 (> 60) L 06/04/18 06:45 BUN/Creatinine Ratio 12 (6-26) 06/04/18 06:45 Glucose 143 mg/dL (70-105) H 06/04/18 06:45 Calculated Osmolality 293 (280-300) 06/04/18 06:45 Lactic Acid 1.7 mmol/L (0.5-2.2) 06/04/18 07:19 Calcium 9.3 mg/dL (8.6-10.3) 06/04/18 06:45 Total Bilirubin 1.1 mg/dL (0.3-1.0) H 06/04/18 06:45 Direct Bilirubin 0.2 mg/dL (0.0-0.2) 06/04/18 06:45 Indirect Bilirubin 0.9 mg/dL (0.0-1.2) 06/04/18 06:45 AST 19 Units/L (13-39) 06/04/18 06:45 ALT 20 Units/L (7-52) 06/04/18 06:45 Alkaline Phosphatase 74 Units/L (34-104) 06/04/18 06:45 Troponin I < 0.03 ng/mL (< 0.04) 06/04/18 06:45 Serum Total Protein 7.1 g/dL (6.4-8.9) 06/04/18 06:45 Albumin 4.3 g/dL (3.5-5.7) 06/04/18 06:45 Globulin 2.8 g/dL (2.4-3.5) 06/04/18 06:45 Albumin/Globulin Ratio 1.5 (1.1-2.2) 06/04/18 06:45 Lipase 22 Units/L (11-82) 06/04/18 06:45 Urine Color Yellow (Yellow) 06/04/18 06:41 Urine Clarity Clear (Clear) 06/04/18 06:41 Urine pH 5.5 pH Units (5.0-8.0) 06/04/18 06:41 Ur Specific [place] 1.024 (1.010-1.025) 06/04/18 06:41 Urine Protein Trace mg/dL (Neg-Trace) 06/04/18 06:41 Urine Glucose (UA) Normal mg/dL (Normal) 06/04/18 06:41 Urine Ketones Negative mg/dL (Negative) 06/04/18 06:41 Urine Blood Moderate (Negative) H 06/04/18 06:41 Urine Nitrite Negative (Negative) 06/04/18 06:41 Urine Bilirubin Negative (Negative) 06/04/18 06:41 Urine Urobilinogen Normal mg/dL (Normal) 08 06:41 Ur Leukocyte Esterase Small (Negative) H 06/04/18 06:41 Urine Microscopic RBC 50-100 per hpf (0-3) H 06/04/18 06:41 Urine Microscopic WBC 15-30 per hpf (0-3) H 06/04/18 06:41 Ur Squamous Epith Cells Moderate per lpf (None-Few) H 06/04/18 06:41 Urine Bacteria None Seen per hpf (None-Few) 06/04/18 06:41 Hyaline Casts None Seen per lpf (None-Few) 06/04/18 06:41 Ur Culture Indicated? YES (NO) A 06/04/18 06:41 Impressions Chest X-Ray 06/04/18 07:01 IMPRESSION: No acute cardiopulmonary disease. D/ / Norman Johnson MD / Norman Johnson MD Interpreting Provider: Norman Johnson MD Abdomen/Pelvis CTA 06/04/18 07:40 IMPRESSION: There is an obstructive stone identified within the left proximal ureter measuring 3.6 mm causing periureteral and perinephric stranding, as well as mild hydronephrosis. Several nonspecific hypodense lesions identified throughout the liver, the largest of which likely representing a simple cyst. The others are too small to characterize. Further evaluation is recommended with an MRI of the liver per liver mass protocol. If unable to undergo MRI, consider a CT liver mass protocol examination. Diverticulosis without acute diverticulitis. There is a 4.6 mm pulmonary nodule identified in the left upper lobe, for which follow-up is recommended as below per Fleischner criteria. Atherosclerotic disease is identified, without aortic aneurysm or dissection. No significant arterial stenosis is seen. RECOMMENDATIONS: Fleischner Society guidelines for follow-up and management of incidentally detected pulmonary nodules: Single Solid Nodule: Nodule size less than 6 mm In a low-risk patient, no routine follow-up. In a high-risk patient, optional CT at 12 months. - Low risk patients include individuals with minimal or absent history of smoking and other known risk factors. - High risk patients include individuals with a history or smoking or known risk factors. Radiology 2017 http://pubs.rsna.org/doi/full/10.1148/radiol.2439651718 D/ / John Meléndez MD / John Meléndez MD Interpreting Provider: John Meléndez MD Chest CTA 06/04/18 07:40 IMPRESSION: There is an obstructive stone identified within the left proximal ureter measuring 3.6 mm causing periureteral and perinephric stranding, as well as mild hydronephrosis. Several nonspecific hypodense lesions identified throughout the liver, the largest of which likely representing a simple cyst. The others are too small to characterize. Further evaluation is recommended with an MRI of the liver per liver mass protocol. If unable to undergo MRI, consider a CT liver mass protocol examination. Diverticulosis without acute diverticulitis. There is a 4.6 mm pulmonary nodule identified in the left upper lobe, for which follow-up is recommended as below per Fleischner criteria. Atherosclerotic disease is identified, without aortic aneurysm or dissection. No significant arterial stenosis is seen. RECOMMENDATIONS: Fleischner Society guidelines for follow-up and management of incidentally detected pulmonary nodules: Single Solid Nodule: Nodule size less than 6 mm In a low-risk patient, no routine follow-up. In a high-risk patient, optional CT at 12 months. - Low risk patients include individuals with minimal or absent history of smoking and other known risk factors. - High risk patients include individuals with a history or smoking or known risk factors. Radiology 2017 http://pubs.rsna.org/doi/full/10.1148/radiol.[email or web address] D/ / John Meléndez MD / John Meléndez MD Interpreting Provider: John Meléndez MD Anesthesia Exam Vital Signs Temp Pulse Resp BP Pulse Ox 06/04/18 11:06 98.2 F 75 16 145/83 94 06/04/18 10:18 24 140/81 06/04/18 09:07 93 20 151/88 95 06/04/18 08:41 97 06/04/18 08:08 93 18 168/89 95 06/04/18 06:47 90 18 191/93 94 06/04/18 06:29 98.1 F 95 20 165/86 95 Intake and Output 06/04/18 06/04/18 06/04/18 07:59 15:59 23:59 Intake Total 0 / 0 Output Total 210 / 210 Balance -210 / -210 Intake: Oral 0 / 0 Output: Urine 210 / 210 Other: Stool Characteristics Normal for Patient Stool Color Brown Weight 86.183 kg Patient Weight 06/04/18 23:59 Weight 86.183 kg Height: 6' Weight: 190# BMI = 26 NPO (# of Hours): MNoc - HEENT Pupil (Motor): Pupils equal, EOMI Mallampati: III (Adequate ROM) Teeth: Normal (Porcelain veneer Uppers.), Poor dentition Oral Opening: Greater than 3 - STAFFING BRANCH MANAGER LOC: Oriented STAFFING BRANCH MANAGER Motor: Normal RUE, Normal LUE, Normal RLE, Normal LLE, Normal Face STAFFING BRANCH MANAGER Sensory: Normal: RUE, LUE, RLE, LLE, Face - Cardiac Rhythm: Regular Murmur: None - Pulmonary Breath Sounds: bilateral Clear Respiratory Effort: Symmetrical Anesthesia Assess/Plan ASA Score: 2 (HTN, Kidney stones) Anes Supervising Prov Stmt: PT seen/evaluated, R&B discusssed, questions answered and consent obtained. Alexa Padilla MD
[2018-06-04] MEDS ORDERED: *HR* Labetalol 100 MG/20 ML MDV IVP PRN (17:09)
[2018-06-04] MEDS ORDERED: MORPHINE SUL Oral CONC 10 MG/0.5 ML ORAL.SYG SL PRN (17:09)
[2018-06-04] MEDS ORDERED: *HR* OxyCODONE Immed Rel 5 MG TABLET PO PRN (17:09)
[2018-06-04] MEDS ORDERED: *HR* FentaNYL (PF) 100 MCG/2 ML VIAL IVP PRN (17:09)
--- NOTE | 2018-06-04 17:17 | Electrocardiograph Report ---
[place] [id number] Test Date: 2018-06-04 Pat Name: Emy Eugene Department: [id number] Room: 3A43 Gender: M Mental Health Tech: LONA : 1945 Requested By: Terrence Clemens Order Number: [id number] Reading MD: Jonny Barnett Measurements Intervals [place] Rate: 91 P: 47 WV: 152 QRS: -8 QRSD: 93 T: 14 QT: 363 QTc: 412 Interpretive Statements SINUS RHYTHM NONSPECIFIC ST-T CHANGES Electronically Signed On 06-04-2018 17:16:14 EDT by Jonny Barnett
[2018-06-04] MEDS ORDERED: EPHEDrine 50 MG/ML VIAL ONE (17:34)
--- NOTE | 2018-06-04 17:57 | Operative Note ---
Date of procedure: 06/04/18 Pre-op diagnosis: Left ureteral stone Post-op diagnosis: same Procedure: Left ureteroscopy, laser lithotripsy, basket stone extraction, and stent placement Implants: 6-Turkmen by 26 cm double-J stent Complications: None Anesthesia: TONYA Surgeon: Ciro Holden Was there an residential real estate assistant present: No Estimated blood loss (cc): 1 Specimen: Left ureteral stone Condition: stable Disposition: PACU Procedure in Detail: Indications: Mr. Eugene is a 73-year-old gentleman who has a history of abdominal pain. A CT scan showed a 3 mm stone in the proximal left ureter. He elected to undergo a left ureteroscopy, laser lithotripsy, and stent placement. He is aware of the risks of the procedure including but not limited to bleeding, infection, injury to other structures, need for further procedures, stent irritation, and the risk of anesthesia. He is willing to proceed. Procedure: After informed consent was obtained the patient was brought back to the operating room and placed in supine position. A time out was performed. General anesthesia was administered and an LMA was placed. He was then placed in the lithotomy position. He was prepped and draped in the usual sterile fashion. Cystoscopy was performed. The anterior urethra showed a wide caliber urethral stricture, but the cystoscope was able to pass. There was no evidence of bladder tumors. The ureteral orifices were in the normal orthotopic position. The Zip wire was placed in the left ureteral orifice and brought into the kidney under fluoroscopic guidance. Contrast was still present in the collecting system. The stone was seen in the proximal ureter. The ureter was gently dilated with the 8/10 Turkmen ureteral dilator. I then advanced the semirigid ureteroscope into the ureter. The stone was fragmented using the 200 micron laser fiber into small pieces. The stone fragments were basket extracted. A 6 Turk[place] by 26cm JJ stent was then placed with good curl seen in the kidney and the bladder. The dangle string was left intact. The bladder was drained. The string was adhered to the penis using a Tegaderm. The patient was then awakened from general anesthesia and brought to recovery room in good condition. All sponge, needle, and instrument counts were correct.
[2018-06-04] MEDS: 0.9 % Sodium Chloride 1,000 ML IVC SCH (18:45)
[2018-06-04] MEDS ORDERED: traZODone 50 MG TABLET PO SCH ×2 (21:00)
[2018-06-04] MEDS ORDERED: lamoTRIgine 100 MG TABLET PO SCH (21:00)
[2018-06-04] MEDS: lamoTRIgine 100 MG TABLET PO SCH (21:12)
[2018-06-05 06:08] LABS: Hematocrit 38.9 % (37.5-50.1); Immature Granulocytes % 0.4 % (0-4); Lymphocytes # 0.8 K/mcL (0.6-4.6); Lymphocytes % 6.6 %; Mean Corpuscular HGB Conc 33.4 g/dL (31.6-35.5); Mean Corpuscular Hemoglobin 30.2 pg (28.0-33.3); Mean Corpuscular Volume 90.3 fL (83.0-100.0); Mean Platelet Volume 10.2 fL (9.4-12.4); Monocytes # 0.7 K/mcL (0.0-1.3); Monocytes % 6.1 %; Neutrophils # 9.9 K/mcL (1.6-8.9); Platelet Count 139 K/mcL (140-400); Red Blood Count 4.31 M/mcL (4.19-5.50); Red Cell Distribution Width 12.9 % (11.5-14.5); Segmented Neutrophils % 86.9 %
[2018-06-05 06:32] LABS: BUN/Creatinine Ratio 17 (6-26); Blood Urea Nitrogen 22 mg/dL (8-23); Calcium 8.8 mg/dL (8.6-10.3); Carbon Dioxide 24 mEq/L (23-29); Chloride 106 mEq/L (98-107); Glucose 185 mg/dL (70-105); Osmolality,Calculated 296 (280-300); Potassium 4.3 mEq/L (3.5-5.1); Sodium 139 mEq/L (136-145); eGFR For Non-African Americans 55 (> 60)
[2018-06-05 07:10] VITALS: BP 156/81
[2018-06-05] MEDS ORDERED: Aspirin Enteric Coated 81 MG Tablet PO SCH ×2 (09:00)
[2018-06-05] MEDS ORDERED: Fluticasone Propionate Nasal 50 MCG/SPRAY BOTTLE NS SCH ×2 (09:00)
[2018-06-05] MEDS ORDERED: Metoprolol XL (24 HR) Succ 25 MG TAB.ER.24H PO SCH ×2 (09:00)
[2018-06-05] MEDS ORDERED: Finasteride 5 MG TABLET PO SCH ×2 (09:00)
[2018-06-05] MEDS ORDERED: amLODIPine 5 MG TABLET PO SCH ×2 (09:00)
[2018-06-05] MEDS: lamoTRIgine 100 MG TABLET PO SCH (09:03)
[2018-06-05] MEDS: 0.9 % Sodium Chloride 1,000 ML IVC SCH (09:05)
--- NOTE | 2018-06-05 09:07 | Urology Progress Note ---
Date of Encounter: 06/05/18 Time of Encounter: 09:05 - Assessment and Plan (1) Ureterolithiasis Current Visit: Yes Status: Acute Assessment and plan: Patient is a 73-year-old male who is one day status post left ureteroscopic stone extraction. Patient is feeling much better and has no new complaints. Patient requests to be advanced to a normal diet, and I placed that order. Patient is voiding without difficulty and has voiced his desire for discharge. I reviewed postoperative restrictions, activity, and follow-up. I also advised patient to self remove his stent on Saturday. Progress Note Subjective: no new complaints, feels better, afebrile Narrative: Patient seen and examined sitting upright in bed in no apparent distress. He is feeling much better. Patient complains of slight dysuria with urination but otherwise he states he has no new complaints. Patient denies significant pain, chest pain, shortness of breath, calf pain. Objective Initial Vital Signs Temp Pulse Resp BP Pulse Ox 98.1 F 95 20 165/86 95 06/04/18 06:29 06/04/18 06:29 06/04/18 06:29 06/04/18 06:29 06/04/18 06:29 - General physical appearance Present: well developed, well nourished, no distress, no pain - Respiratory Present: normal respiratory effort - Abdomen Present: soft, non tender - Integumentary Present: no rash, no abnormal pigmentation - Musculoskeletal Present: normal posture - Psychiatric Present: oriented to time, oriented to person, oriented to place, speech is normal, memory intact - Labs 06/05/18 05:55 06/05/18 05:55 Diabetes panel 06/05/18 Range/Units 05:55 Sodium 139 (136-145) mEq/L Potassium 4.3 (3.5-5.1) mEq/L Chloride 106 (98-107) mEq/L Carbon Dioxide 24 (23-29) mEq/L BUN 22 (8-23) mg/dL Creatinine 1.27 (0.70-1.30) mg/dL Glucose 185 H (70-105) mg/dL Calcium 8.8 (8.6-10.3) mg/dL Calcium panel 06/05/18 Range/Units 05:55 Calcium 8.8 (8.6-10.3) mg/dL Pituitary panel 06/05/18 Range/Units 05:55 Sodium 139 (136-145) mEq/L Potassium 4.3 (3.5-5.1) mEq/L Chloride 106 (98-107) mEq/L Carbon Dioxide 24 (23-29) mEq/L BUN 22 (8-23) mg/dL Creatinine 1.27 (0.70-1.30) mg/dL Glucose 185 H (70-105) mg/dL Calcium 8.8 (8.6-10.3) mg/dL Adrenal panel 06/05/18 Range/Units 05:55 Sodium 139 (136-145) mEq/L Potassium 4.3 (3.5-5.1) mEq/L Chloride 106 (98-107) mEq/L Carbon Dioxide 24 (23-29) mEq/L BUN 22 (8-23) mg/dL Creatinine 1.27 (0.70-1.30) mg/dL Glucose 185 H (70-105) mg/dL Calcium 8.8 (8.6-10.3) mg/dL - VTE Documentation of Mechanical Device: Intermittent pneumatic compression device Consult Discharge Plan - Plan Referrals: Ciro Holden MD [Partnered Physician] - [facility],PCP [Primary Care Provider] -
--- NOTE | 2018-06-05 09:39 | Discharge Summary ---
- NOTES TO OUTPATIENT PROVIDER Notes to Outpatient Provider: Patient hospitalized here acute renal colic due to left proximal obstructing ureteral stone. He was evaluated by urology and underwent left ureteroscopy, laser lithotripsy, basket stone extraction and stent placement yesterday. Since then he is feeling much better. He has been cleared for discharge by urology. He will be discharged home today. He is advised to remove his stent on Saturday and follow-up with urology in 1-2 weeks. Patient was found to have abnormal liver lesions which are most likely cysts but recommend liver MRI which can be done as outpatient. He also had a 4.6 mm pulmonary nodule and has low risk factors. However recommend follow-up with CT in 12 months. Orders not resulted at time of discharge: Pending orders 06/04/18 17:51 Surgical Pathology [PTH] Routine Date of Encounter: 06/05/18 Time of Encounter: 09:34 - Discharge Diagnosis (1) Ureterolithiasis Priority: Primary Status: Acute (2) Acute kidney injury Priority: Secondary Status: Resolved (3) HTN (hypertension) Priority: Secondary Status: Chronic Qualifiers: Hypertension type: essential hypertension Qualified Code(s): I10 - Essential (primary) hypertension (4) Liver masses Priority: Secondary Status: Acute (5) Pulmonary nodule Priority: Secondary Status: Acute Hospital course: Mr. Eugene is a 73 year old male patient with a history of hypertension was hospitalized here acute renal colic due to left proximal obstructing ureteral stone. He was evaluated by urology and underwent left ureteroscopy, laser lithotripsy, basket stone extraction and stent placement yesterday. Since then he is feeling much better. He has been cleared for discharge by urology. He will be discharged home today. He is advised to remove his stent on Saturday and follow-up with urology in 1-2 weeks. Patient was found to have abnormal liver lesions which are most likely cysts but recommend liver MRI which can be done as outpatient. He also had a 4.6 mm pulmonary nodule and has low risk factors. However recommend follow-up with CT in 12 months. Discharge discussed with: patient, nurse - Time Spent with Patient Total time spent providing and/or coordinating discharge services: Less than 30 minutes (25 min) - Discharge Medications Home Medications: Amlodipine Besylate 10 mg PO DAILY 06/04/18 [History] Aspirin [Lo-Dose Aspirin EC] 81 mg PO DAILY 06/04/18 [History] Escitalopram [Lexapro] 10 mg PO DAILY 06/04/18 [History] Finasteride [Proscar] 5 mg PO DAILY 06/04/18 [History] Fluticasone Propionate Nasal [Flonase] 1 spr NS DAILY 06/04/18 [History] Ginseng 100 mg PO DAILY 06/04/18 [History] Losartan Potassium [Cozaar] 100 mg PO DAILY 06/04/18 [History] Metoprolol Succinate [Toprol Xl] 25 mg PO DAILY 06/04/18 [History] Multivit-Min/FA/Lycopen/Lutein [A Thru Z Select Multivit Tab] 1 tab PO DAILY 06/14 [History] Naproxen [Naprosyn] 500 mg PO BID PRN 06/04/18 [History] Sennosides/Docusate Sodium [Colace 2-in-1 Tablet] 1 tab PO BID PRN 06/04/18 [ History] Sildenafil Citrate 100 mg PO DAILY PRN 06/04/18 [History] Tamsulosin HCl [Flomax] 0.4 mg PO BID 06/04/18 [History] Trazodone HCl 150 mg PO HS 06/04/18 [History] lamoTRIgine [Lamictal] 100 mg PO BID 06/04/18 [History] Allergies/Adverse Reactions: 3 Allergy/AdvReac Type Severity Reaction Status Date / Time No Known Allergies Allergy Verified 06/04/18 06:28 Date of admission: 06/04/18 13:31 [facility] care physician: [facility] Consults: 06/04/18 09:08 Consult to Urology [CONS] Stat Consulting Provider: [facility] Reason for Consult: left obstructive ureterolithiasis Time Notified: 09:09 Call Completed: Yes Discharging clinician: Ina Sheth Anticipated date of discharge: 06/05/18 - Constitutional Vitals: Temp Pulse Resp BP Pulse Ox 97.4 F L 71 16 156/81 95 06/05/18 07:04 06/05/18 07:04 06/05/18 07:04 06/05/18 07:04 06/05/18 07:04 General appearance: Present: A&O X 3, no acute distress, answers questions appropriately - Neck Neck exam general surgery: Present: supple, trachea midline. Absent: lymphadenopathy - Respiratory Respiratory exam: Present: CTAB. Absent: accessory muscle use, rales, rhonchi, wheezes - Cardiovascular Cardiovascular exam: Present: RRR, +S1, +S2. Absent: diastolic murmur, gallop, rubs, systolic murmur - GI/Abdominal GI/Abdominal exam: Present: normal bowel sounds, soft, no peritoneal signs. Absent: distended, tenderness - Extremities Exam Extremities exam: Present: warm, radial pulses palpable and symmetrical. Absent : calf tenderness, cyanotic, pedal edema - Neurological Exam Neurological exam: Present: alert, oriented X3, no focal deficits. Absent: facial droop, speech deficit - Skin Skin exam: Present: dry, intact - Patient Status Disposition: Home, Self-Care Condition: Good Functional capacity at discharge: independent ambulation Overall status at discharge: patient is progressing back to baseline - Discharge Instructions Follow Up With: Ciro Holden MD [Partnered Physician] - 06/19/18 9:15 am (In 1-2 weeks) [facility] [Primary Care Provider] - 06/09/18 11:00 am (In 1-2 weeks) Additional Instructions: Follow-up with your PCP regarding liver lesions which are most likely cysts. You may need MRI of the abdomen which can be ordered through her PCP. He also have a lung nodule which is 4.6 mm in size. This may need to be followed with a repeat CT scan in 12 months. - Diet and Activity Activity: increase activity as tolerated Diet: advance to your usual diet, low fat, low cholesterol, low salt diet - VTE Documentation of Mechanical Device: Intermittent pneumatic compression device
[2018-06-09 11:48] LABS: Calculi Mass 25 mg
== END 2018-06-05 11:16 | disposition home or self-care (01) | DRG 669 ==
LOC: EMEROO 06:27 → 3ANU 06:27
PROVIDERS: ADMIT Family Medicine; ATTEND Family Medicine